=== PATIENT | female | born 1970 | race Caucasian/White ===

== ENCOUNTER 2017-09-07 07:24 | Day surgery (SDC) | payer OTHER ==
[2017-08-27 09:35] VITALS: BP 141/78
[~2017-09-07] VITALS: Ht 162.6 cm; Wt 145.7 kg
[~2017-09-07 07:24] MED LIST: LISI1TAB5 PO
[2017-09-07] MEDS ORDERED: LACTATED RINGERS 1,000 ML IV SCH ×2 (08:08→11:29)
[2017-09-07 08:12] LABS: HCG UR SG 1.018 (1.003-1.030)
[2017-09-07] MEDS ORDERED: LIDOCAINE 1%, 2ML ONE (08:16)
[2017-09-07] MEDS ORDERED: LIDOCAINE 1%, 2ML SQ PRN (08:30)
[2017-09-07] MEDS ORDERED: PROPOFOL 10 MG/ML, 20ML ONE (09:35)
[2017-09-07] MEDS ORDERED: MIDAZOLAM 1 MG/ML, 2ML ONE (09:35)
[2017-09-07] MEDS ORDERED: CEFAZOLIN 1,000 MG ONE (09:35)
[2017-09-07] MEDS ORDERED: DEXAMETHASONE 4 MG/ML, 1ML ONE (09:35)
[2017-09-07] MEDS ORDERED: ONDANSETRON 2MG/ML, 2ML ONE (09:35)
[2017-09-07] MEDS ORDERED: LIDOCAINE-MPF 2% ,5ML ONE (09:35)
[2017-09-07] MEDS ORDERED: FLUORESCEIN SODIUM 500 MG/5 ML ONE (09:35)
[2017-09-07] MEDS ORDERED: SUCCINYLCHOLINE 20 MG/ML, 10ML ONE (09:35)
[2017-09-07] MEDS ORDERED: GLYCOPYRROLATE 0.2MG/1ML, 5ML ONE (09:35)
[2017-09-07] MEDS ORDERED: FENTANYL PF 100 MCG/2ML ONE (09:35)
[2017-09-07] MEDS ORDERED: ROCURONIUM 10 MG/ML,10ML ONE (09:35)
[2017-09-07] MEDS ORDERED: VASOPRESSIN 20 UNIT/ML, 1ML ONE (09:35)
[2017-09-07] MEDS ORDERED: NEOSTIGMINE 1 MG/ML, 10ML ONE (09:35)
[2017-09-07] MEDS ORDERED: hydrALAzine 20 MG/ML, 1ML IV PRN (10:00)
[2017-09-07] MEDS ORDERED: OXYcodone 5 MG/5 ML ORAL.SOL UDC PO PRN (10:00)
[2017-09-07] MEDS ORDERED: FENTANYL PF 100 MCG/2ML IV PRN (10:00)
[2017-09-07] MEDS ORDERED: LABETALOL 5MG/ML, 20ML IV PRN (10:00)
[2017-09-07] MEDS ORDERED: DIAZEPAM 5 MG/ML, 2ML IVPush PRN (10:00)
[2017-09-07] MEDS ORDERED: ACETAMINOPHEN 325 MG TABLET PO PRN (10:00)
[2017-09-07] MEDS ORDERED: MIDAZOLAM 1 MG/ML, 2ML IV PRN (10:00)
[2017-09-07] MEDS ORDERED: MEPERIDINE/PF 25MG/0.5ML IVPush PRN (10:00)
[2017-09-07] MEDS ORDERED: ALBUTEROL/IPRATROPIUM 2.5MG/0.5MG, 3 ML NPPB PRN (10:00)
[2017-09-07] MEDS ORDERED: ONDANSETRON 2MG/ML, 2ML IVPush PRN ×2 (10:00→11:30)
[2017-09-07] MEDS ORDERED: LORazepam 2 MG/ML, 1ML IVPush PRN (10:00)
[2017-09-07] MEDS ORDERED: HYDROmorphone 1 MG/ML, 1ML IV PRN (10:00)
[2017-09-07] MEDS ORDERED: PROMETHAZINE 25 MG/ML, 1ML IV PRN (10:00)
[2017-09-07] MEDS ORDERED: BUPIVACAINE/PF 0.25% INFIL ONE (10:13)
[2017-09-07] MEDS ORDERED: IBUPROFEN 600 MG TABLET PO PRN (11:30)
[2017-09-07] MEDS ORDERED: PROMETHAZINE 25 MG SUPP PR ONE (11:30)
[2017-09-07] MEDS ORDERED: HYDROcodone/APAP 5/325 TABLET PO PRN (11:30)
== END 2017-09-07 16:25 ==
LOC: OUT 07:24
PROVIDERS: ATTEND Obstetrics & Gynecology Female Pelvic Medicine and Reconstructive Surgery
DX: N93.9 Abnormal uterine and vaginal bleeding, unspecified (principal); S31.41XA Laceration without foreign body of vagina and vulva, initial encounter; I10 Essential (primary) hypertension; F32.9 Major depressive disorder, single episode, unspecified; F41.9 Anxiety disorder, unspecified; K21.9 Gastro-esophageal reflux disease without esophagitis; E11.9 Type 2 diabetes mellitus without complications; E66.9 Obesity, unspecified; X58.XXXA Exposure to other specified factors, initial encounter; Y93.89 Activity, other specified; Y92.89 Other specified places as the place of occurrence of the external cause; Y99.8 Other external cause status; Z68.43 Body mass index [BMI] 50.0-59.9, adult
CPT/HCPCS: 57200; 58542; 81025; 88307; J0171; J0330; J0690; J1100; J2250; J2405; J2704; J2710; J3010; J3490; J7120; J1885; J2370